=== PATIENT | female | born 2000 | race Caucasian/White ===

== ENCOUNTER 2021-03-17 17:11 | Emergency (ER) | payer BC ==
[~2021-03-17] VITALS: Ht 170.2 cm; Wt 59.1 kg
[2021-03-17 19:09] VITALS: BP 105/70
== END 2021-03-17 19:57 | disposition home or self-care (01) ==
LOC: ER 17:12
DX: R50.9 Fever, unspecified (principal); Z20.822 Contact with and (suspected) exposure to COVID-19; R05 Cough; R42 Dizziness and giddiness; Z88.0 Allergy status to penicillin; Z88.1 Allergy status to other antibiotic agents
CPT/HCPCS: 36415; 99283; U0003; U0005

== ENCOUNTER 2021-06-20 20:01 | Emergency (ER) | payer BC, OTHER ==
[~2021-06-20] VITALS: Ht 170.2 cm; Wt 58.0 kg
[2021-06-20] MEDS ORDERED: acetaminophen 325mg tablet PO ONE (20:20)
[2021-06-20 21:19] LABS: BASOPHILS % (AUTO) 0.1 % (0-1); EOSINOPHILS % (AUTO) 0 % (0-6); HEMOGLOBIN 12.7 g/dl (12.0-16.0); LYMPHOCYTES # (AUTO) 0.4 X10'3 (1.1-4.8); LYMPHOCYTES % (AUTO) 6.1 % (21-51); MEAN CORPUSCULAR HEMOGLOBIN 29.2 PG (27.0-31.0); MEAN CORPUSCULAR HGB CONC 34.2 g/dL (33.0-36.5); MEAN CORPUSCULAR VOLUME 85.4 FL (78-98); MEAN PLATELET VOLUME 8.6 FL (7.4-10.4); MONOCYTES # (AUTO) 0.7 X10'3 (0-0.9); MONOCYTES % (AUTO) 9.7 % (2-12); NEUTROPHILS # (AUTO) 5.7 X10'3 (1.8-7.7); NEUTROPHILS % (AUTO) 84.1 % (42-75); PLATELET COUNT 228 X10'3 (140-440); RED BLOOD COUNT 4.34 X10'6 (4.20-5.60); RED CELL DISTRIBUTION WIDTH 13.4 % (11.5-14.5); WHITE BLOOD COUNT 6.7 X10'3 (4.5-11.0)
[2021-06-20 21:32] LABS: D-DIMER 0.57 MG/L FEU (0-0.50)
[2021-06-20] MEDS ORDERED: diphenhydrAMINE 50 mg/ml inj IV ONE (23:10)
[2021-06-20] MEDS ORDERED: ketorolac trometh. 30mg/ml inj. IV ONE (23:10)
[2021-06-20] MEDS ORDERED: normal saline 1000ML IV soln IVB ONE (23:10)
[2021-06-20] MEDS ORDERED: metoclopramide 5 mg/ml inj IV ONE (23:10)
[2021-06-21 00:24] LABS: CLARITY,URINE CLOUDY (Clear); COLOR,URINE YELLOW (Yellow); GLUCOSE, URINE NEGATIVE (Neg); KETONES,URINE >=80 mg/dl (Neg); LEUKOCYTE ESTERASE ,URINE LARGE (Neg); NITRITES, URINE NEGATIVE (Neg); OCCULT BLOOD,URINE LARGE (Neg); PROTEIN,URINE 100 mg/dl (Neg); UROBILINOGEN,URINE 0.2 E.U/dL (0.2-1.0)
[2021-06-21 00:30] LABS: UA COLLECTION TYPE CLN CATCH MIDSTREAM
[2021-06-21 00:32] LABS: SQUAMOUS EPITHELIAL CELL,UR FEW /LPF (FEW)
[2021-06-21 00:33] LABS: BACTERIA,URINE 4+ /HPF (Neg); WBC CLUMPS,URINE MODERATE /HPF (NEGATIVE); WBC,URINE TNTC /HPF (0-4)
[2021-06-21] MEDS ORDERED: CEPH-585 PO (01:58)
[2021-06-21] MEDS ORDERED: CefTRIAXone 2gm/D5W 50ml BAG 50 ML IV ONE (02:00)
[2021-06-21] MEDS ORDERED: ringers solution, lactated 1000ml IV soln IV ONE (02:15)
[2021-06-21 03:53] VITALS: BP 101/62
== END 2021-06-21 03:55 | disposition home or self-care (01) ==
LOC: ER 20:02
DX: N12 Tubulo-interstitial nephritis, not specified as acute or chronic (principal)
CPT/HCPCS: 36415; 71045; 81001; 83605; 84145; 85025; 85379; 85651; 86140; 87040; 87077; 87088; 87186; 96361; 96365; 96375; 99285; J0696; J1200; J1885; J2765; J7030; J7120